=== PATIENT | male | born 1970 | race Caucasian/White ===

== ENCOUNTER 2018-04-11 21:29 | Emergency (ER) | payer SELFPAY ==
[~2018-04-11] VITALS: Ht 182.9 cm; Wt 84.8 kg
[2018-04-11 21:46] VITALS: Ht 182.9 cm; Wt 84.8 kg
[2018-04-12 00:59] VITALS: BP 125/79
== END 2018-04-12 00:59 | disposition home or self-care (01) ==
LOC: ED 21:29
DX: A08.4 Viral intestinal infection, unspecified (principal)
CPT/HCPCS: J2405; J7030